=== PATIENT | female | born 1995 | race African-American/Black ===

== ENCOUNTER 2018-08-13 01:15 | Emergency (ER) | payer MEDICAID ==
[~2018-08-13] VITALS: Wt 66.7 kg
[~2018-08-13 01:15] MED LIST: AUGMENTIN ES-6100 ML PO; CLARITIN5 MG/5 ML PO; PRELONE5 MG/5 ML PO
== END 2018-08-13 04:59 | disposition home or self-care (01) ==
LOC: ED 01:15
DX: S00.83XA Contusion of other part of head, initial encounter (principal); S00.511A Abrasion of lip, initial encounter; V40.5XXA Car driver injured in collision with pedestrian or animal in traffic accident, initial encounter; Y93.I9 Activity, other involving external motion; Y92.488 Other paved roadways as the place of occurrence of the external cause; Y99.8 Other external cause status

== ENCOUNTER 2020-12-02 20:48 | Emergency (ER) | payer SELFPAY ==
[~2020-12-02] VITALS: Ht 157.4 cm; Wt 63.5 kg
[2020-12-02] MEDS ORDERED: AMOXICILLIN500 M2 PO (21:12)
[2020-12-02] MEDS ORDERED: Motrin,Rufen800 MG PO (21:12)
== END 2020-12-02 21:13 | disposition home or self-care (01) ==
LOC: ED 20:48
DX: K08.89 Other specified disorders of teeth and supporting structures (principal); Z91.040 Latex allergy status

== ENCOUNTER 2022-01-16 14:23 | Emergency (ER) | payer SELFPAY ==
[~2022-01-16] VITALS: Ht 157.4 cm; Wt 63.5 kg
[~2022-01-16 14:23] MED LIST changes: +AMOXICILLIN500 M2 PO; +Motrin,Rufen800 MG PO
[2022-01-16 15:39] LABS: BILIRUBIN Negative (Negative); BLOOD Negative (Negative); CLARITY Cloudy (Clear); COLOR Yellow (Yellow); GLUCOSE Negative (Negative); KETONE Negative (Negative); LEUKO ESTERASE 2+ (Negative); NITRITE Negative (Negative); SPECIFIC GRAVITY 1.015 (1.001-1.030); UROBILINOGEN 0.2 E.U./dl (0.0-1.0)
[2022-01-16 15:47] LABS: URINE AMPHETAMINES < 1000 (1000ng/ml); URINE BARBITURATES < 200 (200ng/ml); URINE BENZODIAZEPINES < 200 (200ng/ml); URINE CANNABINOIDS (THC) < 50 (50ng/ml); URINE COCAINE < 300 (300ng/ml); URINE METHADONE < 300 (300ng/ml); URINE OPIATES < 300 (300ng/ml)
[2022-01-16 15:48] LABS: URINE PHENCYCLIDINE < 25 (25ng/ml)
[2022-01-16 15:57] LABS: BACTERIA 2+; EPITHELIAL CELLS TNTC; WBC 21-30 wbc/hpf (0-5)
[2022-01-16] MEDS ORDERED: DIFLUCAN150 MG PO (16:28)
[2022-01-16] MEDS ORDERED: CEPHALEXIN500 M1 PO (16:28)
== END 2022-01-16 16:44 | disposition home or self-care (01) ==
LOC: ED 14:23
PROVIDERS: Family Medicine
DX: N39.0 Urinary tract infection, site not specified (principal); Z02.83 Encounter for blood-alcohol and blood-drug test; Z79.2 Long term (current) use of antibiotics; Z79.899 Other long term (current) drug therapy